=== PATIENT | female | born 1950 | race Caucasian/White ===

== ENCOUNTER 2017-07-05 14:54 | Outpatient (CLI) | payer BC | END 2017-07-05 14:55 | disposition home or self-care (01) | LOC: BICULT 14:54 | PROVIDERS: ATTEND Internal Medicine Endocrinology, Diabetes & Metabolism | DX: E04.2 Nontoxic multinodular goiter (principal) | CPT/HCPCS: 76536 ==

== ENCOUNTER 2018-07-06 11:10 | Outpatient (CLI) | payer BC ==
--- NOTE | 2018-07-06 12:44 | ULT ---
ABDOMINAL ULTRASOUND: DATE: 07/06/2018. HISTORY: Abdominal pain. FINDINGS: There is a single punctate calcification seen in the wall of the gallbladder. There is also a focus of ring-down artifact seen within the gallbladder near the region of the gallbladder fundus suggestin g adenomyomatosis. No gallbladder calculus is seen. There is no gallbladder wall thickening or anni cholecystic fluid identified. The common duct measured 0.5 cm in diameter, which is within normal li mits. The limited visualized portions of the pancreas, visualized portions of the IVC, and abdominal aorta demonstrate a normal sonographic appearance. There are mild atherosclerotic calcifications seen in t he abdominal aorta. The spleen is normal in size. The right kidney measures 11.1 cm in length. There is a circumscribed anechoic cystic structure in t he mid portion right kidney measuring 3.1 cm demonstrating sonographic characteristics most compatibl e with a cyst. The left kidney measures 12 cm in length, and there is mild left hydronephrosis of un certain etiology. No perinephric fluid collection is seen. IMPRESSION: 1. Mild left hydronephrosis of uncertain etiology. 2. Right renal cyst. 3. Adenomyomatosis involving the gallbladder with punctate calcification in wall of the gallbladder. No gallbladder calculus is seen, and the common duct is normal in caliber. POS: C
== END 2018-07-06 11:11 | disposition home or self-care (01) ==
LOC: SCSULT 11:10
PROVIDERS: ATTEND Internal Medicine Gastroenterology
DX: R10.10 Upper abdominal pain, unspecified (principal); K30 Functional dyspepsia; R14.0 Abdominal distension (gaseous); K59.00 Constipation, unspecified; N13.30 Unspecified hydronephrosis; N28.1 Cyst of kidney, acquired; D13.5 Benign neoplasm of extrahepatic bile ducts; K82.8 Other specified diseases of gallbladder; Z80.9 Family history of malignant neoplasm, unspecified
CPT/HCPCS: 76700

== ENCOUNTER 2023-02-03 08:23 | Outpatient (CLI) | payer BC | END 2023-02-03 08:24 | disposition home or self-care (01) | LOC: BICMAMMO 08:23 | PROVIDERS: ATTEND Family Medicine | DX: Z13.820 Encounter for screening for osteoporosis (principal); Z78.0 Asymptomatic menopausal state; M85.89 Other specified disorders of bone density and structure, multiple sites | CPT/HCPCS: 77080 ==

== ENCOUNTER 2023-09-20 14:11 | Outpatient (CLI) | payer BC | END 2023-09-20 14:12 | disposition home or self-care (01) | LOC: RAD 14:11 | PROVIDERS: ATTEND Internal Medicine Critical Care Medicine | DX: R06.00 Dyspnea, unspecified (principal); R91.8 Other nonspecific abnormal finding of lung field | CPT/HCPCS: 71046 ==